=== PATIENT | female | born 1960 | race Caucasian/White ===

== ENCOUNTER 2017-11-29 10:25 | Outpatient (CLI) | payer OTHER | END 2017-11-29 10:26 | disposition home or self-care (01) | LOC: SC 10:25 | PROVIDERS: ATTEND Internal Medicine Pulmonary Disease | DX: R06.9 Unspecified abnormalities of breathing (principal); R51 Headache; R53.83 Other fatigue; G47.8 Other sleep disorders | CPT/HCPCS: 99203; 99212 ==

== ENCOUNTER 2018-02-11 20:09 | Outpatient (CLI) | payer OTHER | END 2018-02-11 20:10 | disposition home or self-care (01) | LOC: SC 20:09 | PROVIDERS: ATTEND Internal Medicine Pulmonary Disease | DX: G47.33 Obstructive sleep apnea (adult) (pediatric) (principal) | CPT/HCPCS: 95810 ==

== ENCOUNTER 2018-03-23 13:36 | Outpatient (CLI) | payer OTHER | END 2018-03-23 13:37 | disposition home or self-care (01) | LOC: SC 13:36 | PROVIDERS: ATTEND Nurse Practitioner Family | DX: G47.33 Obstructive sleep apnea (adult) (pediatric) (principal) | CPT/HCPCS: 99212; 99214 ==

== ENCOUNTER 2018-06-15 08:15 | Outpatient (CLI) | payer OTHER | END 2018-06-15 08:16 | disposition home or self-care (01) | LOC: SC 08:15 | PROVIDERS: ATTEND Nurse Practitioner Family | DX: G47.33 Obstructive sleep apnea (adult) (pediatric) (principal) | CPT/HCPCS: 99212; 99214 ==

== ENCOUNTER 2018-07-20 08:16 | Outpatient (CLI) | payer OTHER | END 2018-07-20 08:17 | disposition home or self-care (01) | LOC: SC 08:16 | PROVIDERS: ATTEND Nurse Practitioner Family | DX: G47.33 Obstructive sleep apnea (adult) (pediatric) (principal) | CPT/HCPCS: 99212; 99214 ==

== ENCOUNTER 2018-10-20 09:29 | Outpatient (CLI) | payer OTHER ==
[2018-10-20 10:13] VITALS: BP 104/68
--- NOTE | 2018-10-20 10:13 | SLEEP CARE CONSULTATION ---
Information from patient questionnaire entered by Christal Mosley. I have reviewed and concur with the information entered by Christal Mosley. This document represents the service I personally performed and the decisions made by me, Tamela Genao, RN, MSN, MALE INFERTILITY SPECIALIST. History of Present Illness Previous diagnosis: Mild, Obstructive Sleep Apnea-Hypopnea Syndrome AHI: 6.5 Reason for CPAP/BiPAP follow up: three month Equipment type: CPAP Equipment obtained from: [employer] Mask style: Nasal pillows Mask brand: Respironics Backup mask available: Yes Last cushion change: this week HPI additional information: The mask is fitting better with daily cleaning and update. She is having difficulty remembering to change filter. The auto ramp adjustment was not completed by Pretty but seems better. Her morning headache is much reduced. She did not adjust humidity as forgot. The CPAP pillow did not help with prone sleeping or mask leaks. She thinks she will now try the hose lynne next. She is still traveling alot with different beds. CPAP Compliance Data - Data Reviewed with Patient Average duration of nightly device use: 7 Compliance rate %: 97 Current pressure setting (cmH2O): 4-8 Average residual AHI: 0.9 Average large leak: 0.1 liters per minute Subjective Patient concerns: reports: mask discomfort (rare discomfort and adjusts mask), nasal congestion (intermittent that she feels is due to environmental of building house. It is not interferring with use of CPAP. ). denies: aerophagia, air blowing in eyes, mask leak noise, condensation in mask/hose, dry mouth, nose, throat, epistaxis Observed to snore while using device: No Current pressure setting perceived as: comfortable On therapy, patient: reports: being more awake and alert during the day, more rested overall Initial [place] Sleepiness Scale score: 7 Current [place] Sleepiness Scale score: 4 Allergies and Home Medications Known drug allergies: Yes (penicillin, sulfa) Drug allergies reviewed: Yes Home medication list reviewed: Yes Allergy and home medication list: Medication List Medication Name (generic/name brand) Strength & Dosage Carvedilol 3.125mg tab one daily Patanol eye drops One drop each eye twice daily Flonase 50mcg/act Nasal Inhalation Two sprays each nostril daily Vitamin D 2000IU tab one daily Flaxseed Oil 1GM cap one daily Align Probiotic Cap one daily Allergy List Penicillin Sulfa Review of Systems Review of systems same as previous: Yes Physical Exam Blood Pressure: 104/68 Cuff size: regular Heart Rate: 62 O2 Saturation: 96 Height: 5 ft 4 in Weight (kg): 83.461 kg Body Mass Index: 31.6 BMI Classification: Class 1 Impression and Plan 1. Obstructive Sleep Apnea-Hypopnea Syndrome, mild, with good treatment compliance and apnea control. On CPAP therapy, the patient has better sleep quality and is more rested overall. For nasal congestion from environment, I advised showering at night to wash off allergens and facilitating nasal drainage. In addition, I gave her a sample of saline nasal spray to use to clear her nose of any adhering allergens. She can also increase humidity to reduce nasal congestion. She is advised to put changing her filter on phone reminder due to her busy schedule. She will continue work with better mask fit when sleeping prone with pillows and hose lynne. Patient's apnea severity and rationale for treatment to reduce apnea, improve sleep quality and reduce cardiovascular and cerebrovascular events was reviewed. I also reviewed the benefit of consistent device use of CPAP for gastric reflux. * Continue autoCPAP pressure at 4-8cmH2O * Implement methods to reduce nasal congestion. * Notify me if snoring with mask or feeling that the pressure is too much or too little * Attempt to lose weight * Return for follow up in 6 months, or sooner if concerns arise I spent 100% of this 25 minute visit face to face with the patient with greater than 50% of this was spent time counseling the patient and coordination of care.
== END 2018-10-20 09:30 | disposition home or self-care (01) ==
LOC: SC 09:29
PROVIDERS: ATTEND Nurse Practitioner Family
DX: G47.33 Obstructive sleep apnea (adult) (pediatric) (principal)
CPT/HCPCS: 99212; 99214